=== PATIENT | female | born 1955 | race Caucasian/White ===

== ENCOUNTER 2017-01-24 17:05 | Emergency (ER) | payer BC ==
[~2017-01-24] VITALS: Ht 170.2 cm; Wt 109.0 kg
[2017-01-24] MEDS ORDERED: PROP40TA PO (18:19)
[2017-01-24] MEDS ORDERED: VENL75CA PO (18:19)
[2017-01-24 18:59] VITALS: BP 150/90
== END 2017-01-24 19:09 | disposition home or self-care (01) ==
LOC: ED 18:37
DX: H11.32 Conjunctival hemorrhage, left eye (principal)
CPT/HCPCS: 99282